=== PATIENT | male | born 1940 | race Caucasian/White ===

== ENCOUNTER → 2021-02-25 11:37 | Outpatient (CLI) | payer MEDICARE, BC, SELFPAY ==
--- NOTE | ~2021-02-25 | XR_ITS ---
EXAMINATION: XR chest 2V DATE: 02/25/2021 11:55 INDICATION: Shortness of breath. TECHNIQUE: Frontal and lateral views of the chest were obtained. COMPARISON: CT abdomen 10/02/2011 FINDINGS: The lung volumes are normal. There is a diffuse interstitial pattern in the lungs with a pe ripheral predominance, right worse than left. No pleural effusion or pneumothorax. Cardiomegaly is no shey. Median sternotomy wires and mediastinal surgical clips are seen, likely from prior coronary colten ry bypass grafting. There is a left chest wall pacer with leads in the right atrium and right ventric le. There is an additional lead in right atrium. IMPRESSION: 1. Diffuse lung disease, likely predominantly chronic interstitial lung disease. Some component of mi ld pulmonary edema cannot be excluded. 2. Cardiomegaly. Reviewed, dictated and finalized at location B. IMPRESSION: 1. Diffuse lung disease, likely predominantly chronic interstitial lung disease . Some component of mild pulmonary edema cannot be excluded. 2. Cardiomegaly.
== END ==
PROVIDERS: PCP Internal Medicine; Visit Provider Internal Medicine
DX: R06.02 Shortness of breath (principal); J98.4 Other disorders of lung; I51.7 Cardiomegaly
CPT/HCPCS: 71046

== ENCOUNTER 2021-03-18 12:43 | Outpatient (CLI) | payer MEDICARE, BC, SELFPAY ==
--- NOTE | 2021-03-18 | ECHO_ITS ---
Patient Info Name: Juan Bowman Age: 81 years : 1940 Gender: Male Ht: 70 in Wt: 184 lbs BSA: 2.04 m2 HR: 70 bpm BP: 124 / 74 mmHg Heart Rhythm: Atrial Fibrillation Exam Date: 03/18/2021 1:17 PM Exam Location: [facility] Pulmonary Patient Status: Outpatient Admit Date: 03/18/2021 Staff Ordering Physician: , Gama Clark MD Hide Examiner: Anmol Pat RDCS, RT Attending Provider: , Gama Clark MD Referring Physician: English RENZO; Exam Type: CA echo doppler color flow Study Info Indications J81.1 - Chronic pulmonary edema Complete two-dimensional, color flow and Doppler transthoracic echocardiogram is performed. Strain analysis performed. Summary 1. Complete two-dimensional, color flow and Doppler transthoracic echocardiogram is performed. 2. There is moderate concentric increased left ventricular wall thickness. 3. Left ventricular systolic function is normal, estimated at 50-55%. 4. D shaped septum indicating right ventricular pressure overload. 5. Linear artifact in right ventricle suggestive of catheter(s), pacemaker lead(s), or ICD lead(s). 6. Biatrial dilation left greater than right. 7. Moderate aortic valve stenosis valve area 1.3 cm2 by Doppler. Left Ventricle Left ventricular chamber dimension is normal. Left ventricular systolic function is normal, estimated at 50-55%. There is moderate concentric increased left ventricular wall thickness. The left ventricular diastolic function is indeterminate. D shaped septum indicating right ventricular pressure overload. Right Ventricle Right ventricular chamber dimension is normal. Linear artifact in right ventricle suggestive of catheter(s), pacemaker lead(s), or ICD lead(s). Left Atria Left atrial chamber dimension is moderately enlarged. Right Atria Right atrial chamber dimension is mildly enlarged. Linear artifact in the right atrium suggestive of catheter(s), pacemaker lead(s), or ICD lead(s). Aortic Valve The aortic valve is trileaflet. There is moderate aortic valve sclerosis. There is moderate aortic valve stenosis with a peak velocity of 266 cm/s, mean gradient of 14 mmHg, and aortic valve area of 1.1 cm2. There is trace aortic valve regurgitation. Pulmonic Valve The pulmonic valve is not well visualized. Mitral Valve The mitral valve has normal leaflets. There is mild mitral valve regurgitation. Tricuspid Valve The tricuspid valve leaflets are normal. There is mild tricuspid valve regurgitation. Severe pulmonary hypertension, estimated pulmonary arterial systolic pressure is 69 mmHg. Pericardium/Pleural The pericardium appears normal. Aorta The aortic root size at the sinus of Valsalva is normal. Left Ventricular Outflow Tract Name Value Normal LVOT 2D LVOT Diameter 2.1 cm LVOT Doppler LVOT Peak Gradient 2 mmHg LVOT Mean Gradient 1 mmHg LVOT VTI 15 cm LVOT VTI/AV VTI Ratio 0.3 LVOT Stroke Volume 51 ml LVOT CO
== END 2021-03-18 12:44 | disposition home or self-care (01) ==
LOC: ANHCARD 12:48
PROVIDERS: PCP Internal Medicine; Visit Provider Internal Medicine
DX: I50.1 Left ventricular failure, unspecified (principal); I35.0 Nonrheumatic aortic (valve) stenosis
CPT/HCPCS: 93306